=== PATIENT | male | born 1950 | race Caucasian/White ===

== ENCOUNTER 2016-04-19 13:18 | Emergency (ER) | payer MEDICARE, MEDICAID ==
[2016-04-19 13:28] VITALS: RESP 16
[2016-04-19] MEDS ORDERED: MORPHINE SULFATE 10 MG/ML SOL IM ONE (13:35)
[2016-04-19] MEDS ORDERED: MORPHINE SULFATE 10 MG/ML SOL ONE (13:36)
[2016-04-19 13:51] LABS: BASOPHILS % (AUTO) 1 % (0-3); EOSINOPHILS % (AUTO) 3 % (0-9); HEMATOCRIT 34 % (39-53); MEAN CORPUSCULAR HGB CONC 33.4 gm/dl (32.0-36.0); MONOCYTES % (AUTO) 5.5 % (0-12); NEUTROPHILS % (AUTO) 75.8 % (37-80)
[2016-04-19 13:58] LABS: CALCIUM 9.3 mg/dl (8.5-10.1); POTASSIUM 3.4 mMol/L (3.5-5.1)
[2016-04-19] MEDS ORDERED: LIDOCAINE 2% W/ EPI MPF 20 ML SOL SC ONE (14:21)
[2016-04-19] MEDS ORDERED: LIDOCAINE HCL 2% MPF SOL SC ONE (14:21)
[2016-04-19] MEDS ORDERED: TDAP VACCINE 0.5 ML SUS IM ONE ×2 (14:22→14:23)
[2016-04-19] MEDS ORDERED: LIDOCAINE 2% W/ EPI MPF 20 ML SOL ONE (14:23)
[2016-04-19] MEDS ORDERED: BACITRACIN 500 U/GM OIN TOP ONE ×2 (14:42→14:43)
[2016-04-19 15:12] VITALS: BP 111/65; PULSE 72; TEMP 98.2; O2SAT 98
== END 2016-04-19 15:27 | disposition home or self-care (01) | DRG 125 ==
LOC: ED 13:18
DX: S01.112A Laceration without foreign body of left eyelid and periocular area, initial encounter (principal); I48.91 Unspecified atrial fibrillation; W07.XXXA Fall from chair, initial encounter
CPT/HCPCS: 12013; 36415; 70450; 80048; 85025; 85610; 90471; 90715; 96372; 99284; 99285; J2270; A6402

== ENCOUNTER 2016-05-10 21:22 | Emergency (ER) | payer MEDICARE, MEDICAID ==
[2016-05-10 21:56] VITALS: TEMP 98.8
[2016-05-10] MEDS ORDERED: LEVOFLOXACIN 500 MG TAB PO ONE (22:12)
[2016-05-10] MEDS ORDERED: CLINDAMYCIN 150 MG/ML 600 MG in SODIUM CHLORIDE 0.9% 100 ML 100 ML IV ONE (22:13)
[2016-05-10] MEDS ORDERED: VANCOMYCIN HCL 500 MG PDS 1,000 MG in SODIUM CHLORIDE 0.9% 250 ML 250 ML IV ONE (22:13)
[2016-05-10] MEDS ORDERED: PIPERACILLIN/TAZOBACT 3.375 GM 3.375 GM in SODIUM CHLORIDE 0.9% 100 ML 100 ML IV ONE (22:14)
[2016-05-10] MEDS ORDERED: LEVOFLOXACIN 500 MG TAB ONE (22:26)
[2016-05-10] MEDS ORDERED: VANCOMYCIN HYDROCHLORIDE 500 MG PDS IV ONE (22:30)
[2016-05-10] MEDS ORDERED: WATER, STERILE 20 ML 40 ML ONE (22:31)
[2016-05-10 22:37] LABS: BASOPHILS % (AUTO) 0 % (0-3); EOSINOPHILS % (AUTO) 1 % (0-9); HEMATOCRIT 31 % (39-53); MEAN CORPUSCULAR HGB CONC 34.1 gm/dl (32.0-36.0); MEAN CORPUSCULAR VOLUME 93 fL (80-100); MONOCYTES % (AUTO) 6.8 % (0-12); NEUTROPHILS % (AUTO) 84.9 % (37-80)
[2016-05-10 22:41] LABS: CALCIUM 9.2 mg/dl (8.5-10.1); POTASSIUM 3.4 mMol/L (3.5-5.1)
[2016-05-10] MEDS ORDERED: CLINDAMYCIN 150 MG/ML SOL ONE (23:36)
[2016-05-10] MEDS ORDERED: PIPERACILLIN/TAZOBACT 3.375 GM PDS IV ONE (23:58)
[2016-05-11 00:57] VITALS: RESP 18
[2016-05-11 02:13] VITALS: BP 122/65; PULSE 72; O2SAT 98
== END 2016-05-11 01:48 | disposition home or self-care (01) | DRG 602 ==
LOC: ED 21:22
DX: L03.011 Cellulitis of right finger (principal); N18.6 End stage renal disease; S61.002A Unspecified open wound of left thumb without damage to nail, initial encounter; E11.9 Type 2 diabetes mellitus without complications; Z79.4 Long term (current) use of insulin
CPT/HCPCS: 36415; 73130; 80048; 85025; 85610; 87040; 87070; 87077; 87186; 96365; 96366; 99284; 99285; J2543; J3370; S0077; A6232; A6402

== ENCOUNTER 2017-04-04 14:30 | Emergency (ER) | payer MEDICARE, MEDICAID ==
[2017-04-04] MEDS ORDERED: VANCOMYCIN HCL 500 MG PDS 1,000 MG in SODIUM CHLORIDE 0.9% 250 ML 250 ML IV ONE ×2 (15:17→15:23)
[2017-04-04] MEDS ORDERED: VANCOMYCIN HYDROCHLORIDE 500 MG PDS IV ONE (15:44)
[2017-04-04] MEDS ORDERED: VANCOMYCIN HCL 500 MG PDS 2,000 MG in SODIUM CHLORIDE 0.9% 500 ML 500 ML IV SCH (15:45)
[2017-04-04 15:48] LABS: BASOPHILS % (AUTO) 0 % (0-3); EOSINOPHILS % (AUTO) 2 % (0-9); HEMATOCRIT 30 % (39-53); MEAN CORPUSCULAR HGB CONC 31.5 gm/dl (32.0-36.0); MEAN CORPUSCULAR VOLUME 88 fL (80-100); MONOCYTES % (AUTO) 8.3 % (0-12); NEUTROPHILS % (AUTO) 79.3 % (37-80)
[2017-04-04 15:53] VITALS: RESP 20
[2017-04-04 16:02] LABS: ALBUMIN 3.2 gm/dl (3.4-5.0); CALCIUM 9.5 mg/dl (8.5-10.1)
[2017-04-04 17:30] VITALS: TEMP 98.4
[2017-04-04 18:36] VITALS: BP 96/52; PULSE 63; O2SAT 98
[2017-04-04] MEDS ORDERED: SODIUM CHLORIDE 0.9% FLUSH 10 ML SOL IV PRN (18:36)
== END 2017-04-04 18:00 | disposition short-term general hospital (02) | DRG 602 ==
LOC: ED 14:30
DX: L03.818 Cellulitis of other sites (principal); N18.6 End stage renal disease; L89.212 Pressure ulcer of right hip, stage 2; I48.91 Unspecified atrial fibrillation; E10.621 Type 1 diabetes mellitus with foot ulcer; L97.419 Non-pressure chronic ulcer of right heel and midfoot with unspecified severity; Z79.01 Long term (current) use of anticoagulants; L03.115 Cellulitis of right lower limb; Z86.14 Personal history of Methicillin resistant Staphylococcus aureus infection
CPT/HCPCS: 36415; 73620; 80053; 85025; 85610; 87040; 99214; 99285; J3370; A6232

== ENCOUNTER 2017-09-22 11:22 | Emergency (ER) | payer OTHER, MEDICARE, MEDICAID ==
[2017-09-22 11:59] VITALS: BP 97/63; PULSE 76; RESP 20; TEMP 97.5; O2SAT 94
== END 2017-09-22 13:34 | disposition home or self-care (01) | DRG 74 ==
LOC: ED 11:22
DX: G62.9 Polyneuropathy, unspecified (principal); I48.91 Unspecified atrial fibrillation; I10 Essential (primary) hypertension; E11.9 Type 2 diabetes mellitus without complications; R40.2362 Coma scale, best motor response, obeys commands, at arrival to emergency department; R40.2142 Coma scale, eyes open, spontaneous, at arrival to emergency department; R40.2252 Coma scale, best verbal response, oriented, at arrival to emergency department; Z79.01 Long term (current) use of anticoagulants
CPT/HCPCS: 70450; 73030; 99282; 99283; A6232

== ENCOUNTER 2017-11-05 05:34 | Emergency (ER) | payer MEDICARE, MEDICAID ==
[2017-11-05 05:51] VITALS: RESP 18; TEMP 98; O2SAT 92
[2017-11-05 07:25] VITALS: BP 113/62; PULSE 56
[2017-11-05 15:03] LABS: INR 2.54 (0.86-1.12)
== END 2017-11-05 07:29 | disposition home or self-care (01) | DRG 156 ==
LOC: ED 05:34
DX: S02.2XXA Fracture of nasal bones, initial encounter for closed fracture (principal); S81.012A Laceration without foreign body, left knee, initial encounter; Z79.01 Long term (current) use of anticoagulants
CPT/HCPCS: 36415; 85610; 99282; 99283

== ENCOUNTER → 2018-09-20 | Day surgery (SDC) | payer MEDICARE, OTHER ==
[2018-09-20 14:35] VITALS: RESP 16; O2SAT 98
[2018-09-20 14:40] LABS: INR 2.44 (0.86-1.12)
[2018-09-20 15:38] VITALS: TEMP 98.3
[2018-09-20 16:13] VITALS: BP 102/28; PULSE 80
== END | disposition home or self-care (01) | DRG 683 ==
LOC: SURG 14:04
PROVIDERS: ATTEND Nurse Anesthetist, Certified Registered
DX: N18.6 End stage renal disease (principal); F33.9 Major depressive disorder, recurrent, unspecified; I48.91 Unspecified atrial fibrillation; E03.9 Hypothyroidism, unspecified; G62.9 Polyneuropathy, unspecified; E11.9 Type 2 diabetes mellitus without complications; T14.8XXA Other injury of unspecified body region, initial encounter
CPT/HCPCS: 36415; 71045; 85610

== ENCOUNTER 2018-10-14 13:38 | Emergency (ER) | payer MEDICARE, OTHER ==
[2018-10-14 14:09] VITALS: RESP 20; TEMP 97.1
[2018-10-14] MEDS ORDERED: SUCRALFATE 1 GM TAB ONE (14:46)
[2018-10-14] MEDS: SUCRALFATE 1 GM TAB PO ONE (14:50)
[2018-10-14 15:05] LABS: ALBUMIN 2.9 gm/dl (3.4-5.0); BILIRUBIN,TOTAL 0.6 mg/dl (0.2-1.0); CALCIUM 9.5 mg/dl (8.5-10.1); CARBON DIOXIDE 32.5 mEq/L (21-32); CREATININE 3.15 mg/dl (0.80-1.30); TOTAL PROTEIN 9.1 gm/dl (6.4-8.2)
[2018-10-14 15:11] LABS: BASOPHILS % (AUTO) 0 % (0-3); EOSINOPHILS % (AUTO) 0 % (0-9); HEMATOCRIT 35 % (39-53); HEMOGLOBIN 11.2 gm/dl (13.5-17.7); LYMPHOCYTES % (AUTO) 8.9 % (10-50); MEAN CORPUSCULAR HEMOGLOBIN 29.2 pg (27.0-32.0); MEAN CORPUSCULAR HGB CONC 31.6 gm/dl (32.0-36.0); MEAN CORPUSCULAR VOLUME 93 fL (80-100); MONOCYTES % (AUTO) 10.9 % (0-12); NEUTROPHILS % (AUTO) 79.4 % (37-80)
[2018-10-14 17:41] VITALS: BP 100/66; PULSE 72; O2SAT 98
== END 2018-10-14 17:20 | disposition home or self-care (01) | DRG 392 ==
LOC: ED 13:38
DX: R10.9 Unspecified abdominal pain (principal); K59.00 Constipation, unspecified; E11.9 Type 2 diabetes mellitus without complications; Z79.01 Long term (current) use of anticoagulants
CPT/HCPCS: 36415; 74019; 80053; 83690; 85025; 99283; 99284; A9270-GY

== ENCOUNTER 2018-10-16 16:08 | Emergency (ER) | payer MEDICARE, OTHER ==
[2018-10-16 14:56] LABS: BASOPHILS % (AUTO) 1 % (0-3); EOSINOPHILS % (AUTO) 1 % (0-9); HEMATOCRIT 34 % (39-53); HEMOGLOBIN 10.3 gm/dl (13.5-17.7); LYMPHOCYTES % (AUTO) 7.7 % (10-50); MEAN CORPUSCULAR HEMOGLOBIN 28.4 pg (27.0-32.0); MEAN CORPUSCULAR HGB CONC 30.2 gm/dl (32.0-36.0); MEAN CORPUSCULAR VOLUME 94 fL (80-100)
[2018-10-16 15:07] LABS: INR 1.27 (0.87-1.13)
[2018-10-16 16:46] VITALS: RESP 16; TEMP 98.1
[2018-10-16] MEDS ORDERED: VANCOMYCIN HYDROCHLORIDE 500 MG PDS IV ONE (17:20)
[2018-10-16] MEDS: SODIUM CHLORIDE 0.9% FLUSH 10 ML SOL IV PRN (17:40)
[2018-10-16] MEDS: VANCOMYCIN HCL 500 MG PDS 1,250 MG in SODIUM CHLORIDE 0.9% 250 ML 250 ML IV ONE (17:46)
[2018-10-16 17:48] LABS: BASOPHILS % (AUTO) 1 % (0-3); EOSINOPHILS % (AUTO) 1 % (0-9); HEMATOCRIT 34 % (39-53); HEMOGLOBIN 10.4 gm/dl (13.5-17.7); LYMPHOCYTES % (AUTO) 9.5 % (10-50); MEAN CORPUSCULAR HEMOGLOBIN 28.9 pg (27.0-32.0); MEAN CORPUSCULAR HGB CONC 30.8 gm/dl (32.0-36.0); MEAN CORPUSCULAR VOLUME 94 fL (80-100); MONOCYTES % (AUTO) 7.8 % (0-12); NEUTROPHILS % (AUTO) 81.3 % (37-80)
[2018-10-16 18:07] LABS: ALBUMIN 2.6 gm/dl (3.4-5.0); BILIRUBIN,TOTAL 0.6 mg/dl (0.2-1.0); CALCIUM 9.2 mg/dl (8.5-10.1); CARBON DIOXIDE 31.3 mEq/L (21-32); CREATININE 2.89 mg/dl (0.80-1.30); LACTIC ACID 1.1 mMol/L (0.0-2.0); TOTAL PROTEIN 8.5 gm/dl (6.4-8.2)
[2018-10-16 18:29] VITALS: BP 93/61; PULSE 66; O2SAT 95
== END 2018-10-16 18:17 | disposition short-term general hospital (02) | DRG 872 ==
LOC: ED 16:08
DX: A41.50 Gram-negative sepsis, unspecified (principal); L03.115 Cellulitis of right lower limb; L97.812 Non-pressure chronic ulcer of other part of right lower leg with fat layer exposed; L97.822 Non-pressure chronic ulcer of other part of left lower leg with fat layer exposed; L89.610 Pressure ulcer of right heel, unstageable; E11.9 Type 2 diabetes mellitus without complications; Z79.01 Long term (current) use of anticoagulants; I10 Essential (primary) hypertension; F41.8 Other specified anxiety disorders
CPT/HCPCS: 36415; 80053; 82800; 83605; 85025; 85610; 96365; 97597; 99284; J3370; A6232